=== PATIENT | female | born 1995 ===

== ENCOUNTER 2024-04-27 19:29 | Emergency (ER) | payer MEDICAID ==
[~2024-04-27] VITALS: Ht 157.5 cm; Wt 52.0 kg
[2024-04-27] MEDS ORDERED: OLANZapine 10 MG TAB PO ONE (20:00)
[2024-04-27] MEDS ORDERED: LORazepam 1 MG TAB PO ONE (20:00)
[2024-04-27 20:29] LABS: BASOPHILS 0.7 % (0-2); EOSINOPHILS 0.2 % (0-6); HEMATOCRIT 37.5 % (35.0-50.0); HEMOGLOBIN 13.2 g/dL (12.0-18.0); LYMPHOCYTES 27.3 % (24-44); MCH 32.2 (27-36); MCHC 35.3 g/dl (30-36); MCV 91.3 fl (81-99); MONOCYTES 13.7 % (0-12); NEUTROPHILS 58.1 % (39-80); PLATELET COUNT 330 K/uL (140-440); RBC 4.11 M/ul (4.3-5.7); RDW 13.5 (10.5-15.0)
[2024-04-27 20:56] LABS: ACETAMINOPHEN 0 ug/mL (10-30); ALBUMIN 3.8 g/dL (3.4-5.0); ALBUMIN/GLOBULIN RATIO 1.12 (1.1-2.4); ALCOHOL, MEDICAL <3 ng/dL (<3); ALKALINE PHOSPHATASE 46 U/L (46-116); ALT (SGPT) 30 U/L (14-59); ANION GAP 11.3 (7-21); AST (SGOT) 18 U/L (15-37); BILIRUBIN, TOTAL 0.6 ng/dL (0.2-1.0); BUN/CREATININE RATIO 9.87 (6.0-28.6); CALCIUM 8.9 mg/dL (8.5-10.1); CARBON DIOXIDE 28 mmol/L (21-32); CHLORIDE 104 mmol/L (98-107); CREATININE, SERUM 0.81 mg/dL (0.55-1.02); GLOMERULAR FILTRATION RATE,EST 99 mL/min (>60); POTASSIUM 3.3 mmol/L (3.5-5.1); PROTEIN, TOTAL 7.2 g/dL (6.4-8.2); SALICYLATE 0.8 mg/dL (2.8-20.0); TSH, 3RD GENERATION 0.334 uIU/mL (0.358-3.740); UREA NITROGEN 8 mg/dL (7-18)
[2024-04-28 10:01] LABS: AMPHETAMINES, URINE NEGATIVE (NEGATIVE); BARBITURATES, URINE NEGATIVE (NEGATIVE); BENZODIAZEPINE, URINE NEGATIVE (NEGATIVE); BUPRENORPHINE, URINE NEGATIVE (NEGATIVE); CANNABINOID, URINE POSITIVE (NEGATIVE); COCAINE, URINE NEGATIVE (NEGATIVE); ECSTASY, URINE NEGATIVE (NEGATIVE); FENTANYL, URINE NEGATIVE (NEGATIVE); METHADONE, URINE NEGATIVE (NEGATIVE); OPIATES, URINE NEGATIVE (NEGATIVE); OXYCODONE, URINE NEGATIVE (NEGATIVE); PHENCYCLIDINE, URINE NEGATIVE (NEGATIVE)
--- NOTE | 2024-04-28 19:50 | EKG ---
[facility] [address] [place] [address] Signed Sinus rhythm with sinus arrhythmia with short DE Otherwise normal ECG No previous ECGs available Confirmed by Megha Loera MD ([id number]) on 04/28/2024 7:50:02 PM Electronically Signed By: MEGHA LOERA MD 04/28/24 1950 PATIENT NAME: GIULIANA SARKAR Electrocardiogram DATE OF : [birth year] PHYSICIAN: MEGHA LOERA MD REPORT #: [id number] REPORT IS CONFIDENTIAL AND NOT TO BE RELEASED WITHOUT AUTHORIZATION
[2024-04-28] MEDS ORDERED: OLANZapine 10 MG TAB PO ONE (21:30)
[2024-04-28] MEDS ORDERED: NICOTINE 14 MG/24 HR 1 EA TDSY TD ONE (21:45)
[2024-04-29] MEDS ORDERED: QUETIAPINE FUMARATE 25 MG TAB PO SCH (10:53)
[2024-04-29] MEDS ORDERED: NICOTINE 14 MG/24 HR 1 EA TDSY TD SCH (11:02)
[2024-04-29] MEDS ORDERED: hydrOXYzine pamoate 25 MG CAP PO PRN (13:30)
[2024-04-29] MEDS ORDERED: OLANZapine 10 MG TAB PO SCH (21:00)
[2024-04-30] MEDS ORDERED: ACETAMINOPHEN 500 MG TAB PO ONE (14:00)
[2024-05-01 06:41] VITALS: BP 133/92
--- OUTSIDE RECORDS SUMMARY | 2024-05-01 06:45 | XMS ---
PreManage Notification: GIULIANA SARKAR Security All Round Butcher Events No recent Security Events currently on file CRITERIA MET - [facility] - 2 Visits in 30 Days CARE PROVIDERS MARAH CANDELARIA Clinic/Center: Federally Qualified 12/22/2023-[facility] ([facility] PHONE: [phone] EDY Clinic/Center: Federally Qualified 12/22/2023-[facility] ([facility]) CENTER - PHONE: Unknown - [facility] Dentist: President And Chief Commercial Officer [facility] PHONE: [phone] -JOSE ELIAS- [facility] Dentist: President And Chief Commercial Officer [facility] PHONE: [phone] Nela Counselor: Mental Health Eliu Lee LPC PHONE: [phone] KALYAN BURNETTE Ramp Attendant/Mat Tester [facility] PHONE: [phone] Meliza has no Care Guidelines for this patient. [place] VISIT COUNT (12 MO.) 4 [place] 2 [facility] 1 PAMELA Lo Vinny [address] [place], [place] [address]John 1 [facility]. TOTAL 9 NOTE: Visits indicate total known visits. 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 AMS 03924. Manic episode, unspecified 03/11/2024 06:31 [facility] [place] TYPE: Emergency DIAGNOSES: - Unspecified psychosis not due to a substance or known physiological condition 08/08/2023 13:17 [facility] [place] TYPE: Emergency DIAGNOSES: 45401. aniexty 07/17/2023 21:43 [facility] [place] TYPE: Emergency DIAGNOSES: 12195. anxiety 30474. Anxiety disorder, unspecified 17994. Pruritus, unspecified [facility] DI[facility]ES: - Homelessness unspecified - Anxiety - Homeless 07/03/2023 12:47 [facility] TYPE: Emergency DIAGNOSES: - Less than 8 weeks gestation of - Local infection of the skin and subcutaneous tissue, unspecified - Test [facility] DIAGNOSES: 07885. open sores all over body . Excoriation (skin-picking) disorder . Local infection of the skin and subcutaneous tissue, unspecified INPATIENT VISIT TRACKING (12 MO.) 03/15/2024 17:54 [facility] [place] TYPE: Psychiatric Services DIAGNOSES: 0. Unspecified psychosis not due to a substance or known physiological condition 1. Unspecified psychosis not due to a substance or known physiological condition 2. Cannabis dependence with withdrawal 2. Depression, unspecified 2. Generalized anxiety disorder 2. Iron deficiency anemia, unspecified 2. Nicotine dependence, cigarettes, uncomplicated 2. Other specified disorders of teeth and supporting structures 2. 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 Other stimulant dependence with withdrawal 2. Sheltered homelessness [email or web address]
== END 2024-05-01 06:43 ==
LOC: ED 19:29
PROVIDERS: Emergency Medicine
DX: F31.9 Bipolar disorder, unspecified (principal)
CPT/HCPCS: 36415; 80053; 80307; 84443; 84703; 85025; 99285; A9270; A9270-GY; G0480; Q0177